=== PATIENT | female | born 1945 | race Caucasian/White ===

== ENCOUNTER 2017-04-01 16:09 | Emergency (ER) | payer BC ==
[~2017-04-01] VITALS: Ht 160 cm; Wt 102.0 kg
[~2017-04-01 16:09] MED LIST: AMBIEN10 MG PO; AMLODIPINE5 MG PO; ASPIRIN325 MG PO; CALCIUM600 M2 OR; CO Q-10100 MG OR; CYMBALTA60 MG PO; FISH OIL300 MG OR; LIPITOR10 MG PO; MULTI VIT PO; NAPROXEN500 MG PO; NEXIUM40 M1 PO; OSTEO BI-FL1 OR; POTASSIMIN75 MG OR; SYNTHROID100 MCG PO; TOBRAMYCIN0.3 % OD; VICODIN ES1 TAB OR; VITAMIN B OR; ZANAFLEX4 MG OR
[2017-04-01 17:32] LABS: HEMATOCRIT 45.1 % (37.0-47.0); HEMOGLOBIN 15.1 g/dl (12.0-16.0); IMMATURE GRANULOCYTES 0.8 % (0.0-1.0); MEAN CELL VOLUME 96.6 fL CALC (80.0-100.0); MEAN CORPUSCULAR HGB 32.3 pG CALC (26.0-32.0); MEAN CORPUSCULAR HGB CONC 33.5 g/L CALC (32.0-36.0); NEUT# 12.08 thou/uL (2.00-7.15); RED BLOOD COUNT 4.67 mill/uL (4.20-5.60); RED CELL DISTRI WIDTH 14.1 % (11.5-15.5)
[2017-04-01 18:29] LABS: ALBUMIN 4.7 g/dL (3.2-5.0); BILIRUBIN, TOTAL 1.1 mg/dL (0.0-1.4); CALCIUM 9.6 mg/dL (8.4-10.2); CREATININE 1.2 mg/dL (0.5-1.0); POTASSIUM 3.6 mmol/l (3.5-5.1); TOTAL PROTEIN 8.1 g/dL (6.3-8.2)
[2017-04-01 18:59] LABS: TSH, 3RD GENERATION 2.22 uIU/mL (0.47 - 4.68)
[2017-04-01 20:08] LABS: URINE BLOOD DIPSTICK NEGATIVE (NEGATIVE); URINE COLOR YELLOW; URINE GLUCOSE - DIPSTICK NEGATIVE (NEGATIVE); URINE KETONE TRACE mg/dL (NEGATIVE); URINE LEUK ESTERASE NEGATIVE (NEGATIVE); URINE NITRITE - DIPSTICK NEGATIVE (Negative); URINE PROTEIN - DIPSTICK 30 mg/dL (NEG-TRACE); URINE SPECIFIC GRAVITY 1.025; URINE UROBILINOGEN - DIPSTICK 0.2 E.U./dL (0.2)
[2017-04-01 20:11] LABS: URINE CLARITY HAZY
[2017-04-01 20:12] LABS: URINE BILIRUBIN - DIPSTICK NEGATIVE (NEGATIVE)
[2017-04-01 20:21] LABS: URINE MUCUS MODERATE hpf (NONE-FEW); URINE RBC 0-2 RBC/hpf (0-5); URINE TRANSITIONAL EPI. CELLS FEW hpf
[2017-04-01 20:22] LABS: URINE FINE GRAN CAST FEW lpf
[2017-04-01] MEDS ORDERED: PREDNISONE50 MG PO (20:37)
[2017-04-01] MEDS ORDERED: CIMETIDINE400 M1 PO (20:37)
[2017-04-01] MEDS ORDERED: BENADRYL 50MG C50 MG PO (20:37)
[2017-04-01 20:51] VITALS: BP 140/74
== END 2017-04-01 20:48 | disposition home or self-care (01) | DRG 312 ==
LOC: ED 16:09
PROVIDERS: Emergency Medicine
DX: R55 Syncope and collapse (principal); I10 Essential (primary) hypertension; L50.9 Urticaria, unspecified; R94.31 Abnormal electrocardiogram [ECG] [EKG]; R53.1 Weakness; Y93.E1 Activity, personal bathing and showering; Y92.002 Bathroom of unspecified non-institutional (private) residence as the place of occurrence of the external cause

== ENCOUNTER 2017-05-27 15:35 | Emergency (ER) | payer BC ==
[~2017-05-27] VITALS: Ht 160 cm; Wt 100.0 kg
[~2017-05-27 15:35] MED LIST changes: +BENADRYL 50MG C50 MG PO; +CALCI23 PO; -CALCIUM600 M2 OR; +CIMETIDINE400 M1 PO; -CO Q-10100 MG OR; +CO Q-10100 MG PO; +LIPITOR10 M1 PO; -LIPITOR10 MG PO; -POTASSIMIN75 MG OR; +POTASSIMIN75 MG PO; +PREDNISONE50 MG PO; +VICODIN ES1 TA1 PO; -VICODIN ES1 TAB OR
[2017-05-27] MEDS ORDERED: TOPAMAX25 MG PO (18:27)
[2017-05-27] MEDS ORDERED: LORTAB 1010 MG PO ×2 (20:21→20:24)
[2017-05-27 20:30] VITALS: BP 140/80
== END 2017-05-27 20:30 | disposition home or self-care (01) | DRG 605 ==
LOC: ED 15:35
DX: S80.02XA Contusion of left knee, initial encounter (principal); M25.562 Pain in left knee; W01.0XXA Fall on same level from slipping, tripping and stumbling without subsequent striking against object, initial encounter; Y93.89 Activity, other specified; Y92.512 Supermarket, store or market as the place of occurrence of the external cause
CPT/HCPCS: L1830

== ENCOUNTER 2017-07-17 18:08 | Emergency (ER) | payer BC ==
[~2017-07-17] VITALS: Ht 160 cm; Wt 102.0 kg
[~2017-07-17 18:08] MED LIST changes: +LORTAB 1010 MG PO; +TOPAMAX25 MG PO
[2017-07-17] MEDS ORDERED: PERCOCET 5/325M1 TAB PO (19:51)
[2017-07-17 20:25] VITALS: BP 147/100
== END 2017-07-17 20:25 | disposition home or self-care (01) | DRG 605 ==
LOC: ED 18:08
DX: S90.122A Contusion of left lesser toe(s) without damage to nail, initial encounter (principal); W22.09XA Striking against other stationary object, initial encounter; Y93.9 Activity, unspecified; Y92.003 Bedroom of unspecified non-institutional (private) residence as the place of occurrence of the external cause

== ENCOUNTER 2018-06-22 09:12 | Emergency (ER) | payer BC ==
[~2018-06-22] VITALS: Ht 162.6 cm; Wt 104.5 kg
[~2018-06-22 09:12] MED LIST changes: +PERCOCET 5/325M1 TAB PO
[2018-06-22 11:03] LABS: HEMATOCRIT 35.1 % (37.0-47.0); HEMOGLOBIN 11.7 g/dl (12.0-16.0); IMMATURE GRANULOCYTES 0.3 % (0.0-5.0); MEAN CELL VOLUME 99.2 fL CALC (80.0-100.0); MEAN CORPUSCULAR HGB 33.1 pG CALC (26.0-32.0); MEAN CORPUSCULAR HGB CONC 33.3 g/L CALC (32.0-36.0); NEUT# 4.21 thou/uL (2.00-7.15); RED BLOOD COUNT 3.54 mill/uL (4.20-5.60)
[2018-06-22 11:28] LABS: ALBUMIN 3.9 g/dL (3.2-5.0); ALKALINE PHOSPHATASE 75 u/l (38-126); BILIRUBIN, TOTAL 0.9 mg/dL (0.0-1.4); BUN 21 mg/dL (8-23); BUN/CREATININE RATIO 26 (12-20 (CALC)); CARBON DIOXIDE 26 mmol/l (22-30); CHLORIDE 104 mmol/l (95-108); CREATININE 0.8 mg/dL (0.5-1.0); GFR > 60 ML/MIN (>=60 (CALC)); GFR FOR AFR.AMER. > 60 ML/MIN (>=60 (CALC)); SGOT/AST 23 u/l (9-36); SODIUM 141 mmol/l (137-146); TOTAL PROTEIN 6.6 g/dL (6.3-8.2)
[2018-06-22 11:35] LABS: ANION GAP 15 (6-22 (CALC)); POTASSIUM 4.4 mmol/l (3.5-5.1)
[2018-06-22] MEDS ORDERED: MEDDOSEPAK PO (11:53)
[2018-06-22] MEDS ORDERED: TORADOL PO (11:53)
[2018-06-22 12:31] VITALS: BP 132/68
== END 2018-06-22 12:31 | disposition home or self-care (01) | DRG 313 ==
LOC: ED 09:12
PROVIDERS: Emergency Medicine
DX: R07.89 Other chest pain (principal)

== ENCOUNTER 2022-06-26 22:56 | Emergency (ER) | payer MEDICARE, BC ==
[~2022-06-26] VITALS: Ht 162.6 cm; Wt 100.0 kg
[~2022-06-26 22:56] MED LIST changes: +MEDDOSEPAK PO; +TORADOL PO
[2022-06-27 01:07] LABS: BASO% 0.2 % (0-3); HEMATOCRIT 39.5 % (37.0-47.0); HEMOGLOBIN 13.6 g/dl (12.0-16.0); IMMATURE GRANULOCYTES 0.8 % (0.0-5.0); LYMPH% 2.9 % (15-41); MEAN CELL VOLUME 99.2 fL CALC (80.0-100.0); MEAN CORPUSCULAR HGB 34.2 pG CALC (26.0-32.0); MEAN CORPUSCULAR HGB CONC 34.4 g/dL CAL (32.0-36.0); MONO% 1.5 % (2-13); NEUT# 9.82 thou/uL (2.00-7.15); NEUT% 94.6 % (42-76); RED BLOOD COUNT 3.98 mill/uL (4.20-5.60); RED CELL DISTRI WIDTH 12.9 % (11.5-15.5)
[2022-06-27 01:35] LABS: ALBUMIN 4.4 g/dL (3.2-5.0); ALKALINE PHOSPHATASE 83 u/l (38-126); AMYLASE 77 u/l (30-110); ANION GAP 13 (6-22 (CALC)); BILIRUBIN, TOTAL 1.2 mg/dL (0.02-1.3); BUN 21 mg/dL (8-23); BUN/CREATININE RATIO 26 (12-20 (CALC)); CARBON DIOXIDE 26 mmol/l (22-30); CHLORIDE 104 mmol/l (95-108); CREATININE 0.8 mg/dL (0.5-1.0); GFR FOR AFR.AMER. > 60 ML/MIN (>=60 (CALC)); GFR OTHER RACES > 60 ML/MIN (>=60 (CALC)); LIPASE 44 u/l (23-300); POTASSIUM 3.8 mmol/l (3.5-5.1); SGOT/AST 33 u/l (9-36); SODIUM 139 mmol/l (137-146); TOTAL PROTEIN 7.3 g/dL (6.3-8.2)
[2022-06-27] MEDS ORDERED: LOMOTIL2.5 MG PO (04:29)
[2022-06-27] MEDS ORDERED: ONDANSETRON4 MG PO (04:29)
[2022-06-27 04:43] VITALS: BP 149/84
== END 2022-06-27 04:46 | disposition home or self-care (01) ==
LOC: ED 22:56
PROVIDERS: Emergency Medicine
DX: K52.9 Noninfective gastroenteritis and colitis, unspecified (principal); I10 Essential (primary) hypertension; E03.9 Hypothyroidism, unspecified; K21.9 Gastro-esophageal reflux disease without esophagitis; F32.A Depression, unspecified; Z20.822 Contact with and (suspected) exposure to COVID-19
CPT/HCPCS: S0164

== ENCOUNTER 2022-07-27 06:25 | Day surgery (SDC) | payer MEDICARE, BC ==
[~2022-07-27] VITALS: Ht 162.6 cm; Wt 89.4 kg
[~2022-07-27 06:25] MED LIST changes: +LOMOTIL2.5 MG PO; +ONDANSETRON4 MG PO
[2022-07-27 08:27] VITALS: BP 120/80
== END 2022-07-27 09:27 | disposition home or self-care (01) ==
LOC: ORM 06:25
PROVIDERS: ATTEND Internal Medicine Gastroenterology
PROC: 0DB48ZX Excision of Esophagogastric Junction, Via Natural or Artificial Opening Endoscopic, Diagnostic (ICD-10-PCS; principal; 2022-07-27)
PROC: 0DB78ZX Excision of Stomach, Pylorus, Via Natural or Artificial Opening Endoscopic, Diagnostic (ICD-10-PCS; 2022-07-27)
DX: K21.9 Gastro-esophageal reflux disease without esophagitis (principal); K31.9 Disease of stomach and duodenum, unspecified; I10 Essential (primary) hypertension; E03.9 Hypothyroidism, unspecified; E78.5 Hyperlipidemia, unspecified; J45.909 Unspecified asthma, uncomplicated; F32.A Depression, unspecified